=== PATIENT | female | born 1985 ===

== ENCOUNTER 2019-10-18 11:53 | Emergency (ER) | payer MEDICAID ==
[~2019-10-18] VITALS: Ht 162.6 cm; Wt 105.0 kg
[2019-10-18 14:48] VITALS: BP 118/84
[2019-10-18] MEDS ORDERED: ALBUTEROL SULFATE HFA 90 MCG/PUFF 8 GM INHALER IH ONE (15:00)
[2019-10-18] MEDS ORDERED: IBUPROFEN 600 MG TABLET PO ONE (15:00)
[2019-10-18] MEDS: PENICILLIN G BENZATHINE LA 1,200,000 UNITS/2 ML SYRINGE IM ONE ×2 (15:13→15:16)
== END 2019-10-18 15:42 | disposition home or self-care (01) ==
LOC: EMS 11:54
DX: J03.90 Acute tonsillitis, unspecified (principal); F31.9 Bipolar disorder, unspecified; F20.9 Schizophrenia, unspecified; F17.210 Nicotine dependence, cigarettes, uncomplicated
CPT/HCPCS: 71046; 94640; 99283; 99406; J0561; J3535